=== PATIENT | male | born 1990 | race Caucasian/White ===

== ENCOUNTER 2018-07-10 13:48 | Emergency (ER) | payer OTHER ==
[~2018-07-10] VITALS: Ht 177.8 cm; Wt 113.6 kg
[~2018-07-10 13:48] MED LIST: ACETTAB3 OR; CLARITIN10 MG OR; CLEOCIN150 MG PO; E.E.S. 400400 MG OR; FIORICET OR; MOTRIN600 MG OR; NAPROSYN500 MG PO; NO MEDS; PANCOF EXP OR; ZITHROMAX250 MG OR
[2018-07-10 14:27] LABS: IMMATURE GRANULOCYTES 0.2 % (0.0-5.0); MEAN CELL VOLUME 96.9 fL CALC (80.0-100.0); MEAN CORPUSCULAR HGB 31.4 pG CALC (26.0-32.0); MEAN CORPUSCULAR HGB CONC 32.4 g/L CALC (32.0-36.0); NEUT# 5.19 thou/uL (1.82-7.42); RED BLOOD COUNT 4.52 mill/uL (4.70-6.10); RED CELL DISTRI WIDTH 12.1 % (11.5-15.5)
[2018-07-10 14:29] LABS: HEMATOCRIT 43.8 % (39.0-50.0); HEMOGLOBIN 14.2 g/dl (14.0-18.0)
[2018-07-10] MEDS ORDERED: SERTRALINE50 MG PO (14:40)
[2018-07-10 14:51] LABS: ANION GAP 14 (6-22 (CALC)); BUN 14 mg/dL (9-20); BUN/CREATININE RATIO 21 (12-20 (CALC)); CARBON DIOXIDE 26 mmol/l (22-30); CHLORIDE 104 mmol/l (95-108); CREATININE 0.7 mg/dL (0.7-1.3); GFR > 60 ML/MIN (>=60 (CALC)); GFR FOR AFR.AMER. > 60 ML/MIN (>=60 (CALC)); SODIUM 139 mmol/l (137-146)
[2018-07-10 14:52] LABS: POTASSIUM 4.9 mmol/l (3.5-5.1)
[2018-07-10 16:39] VITALS: BP 123/73
== END 2018-07-10 17:05 | DRG 310 ==
LOC: ED 13:48
PROVIDERS: Family Medicine
DX: I47.1 Supraventricular tachycardia (principal)
CPT/HCPCS: J0153

== ENCOUNTER 2021-03-10 12:23 | Emergency (ER) | payer OTHER ==
[~2021-03-10] VITALS: Ht 177.8 cm; Wt 132.0 kg
[~2021-03-10 12:23] MED LIST changes: +SERTRALINE50 MG PO
[2021-03-10 15:30] VITALS: BP 146/81
== END 2021-03-10 15:30 | disposition home or self-care (01) | DRG 179 ==
LOC: ED 12:23
DX: U07.1 COVID-19 (principal)